=== PATIENT | male | born 1955 | race African-American/Black ===

== ENCOUNTER 2016-12-24 06:50 | Emergency (ER) | payer BC ==
[~2016-12-24] VITALS: Ht 177.8 cm; Wt 104.0 kg
[2016-12-24] MEDS ORDERED: SODIUM CHLORIDE 0.9% 1,000 ML IV ONE (07:27)
[2016-12-24] MEDS ORDERED: MECLIZINE 25MG TABLET PO ONE (07:30)
[2016-12-24 07:50] LABS: BASOPHILS % 0.3 % (0.0-2.0); EOSINOPHILS % 2.6 % (0.0-5.0); HEMOGLOBIN. 11.2 g/dL (14.0-18.0); LYMPHOCYTES % 19.5 % (20.0-50.0); MEAN CORPUSCULAR HEMOGLOBIN 23.9 pg (28.0-32.0); MEAN CORPUSCULAR VOLUME 75.8 fL (80.0-94.0); MEAN PLATELET VOLUME 8.7 fl (7.4-10.4); NEUTROPHILS % 67.6 % (40.0-76.0); PLATELET 208 x1000/uL (130-400); RED CELL DISTRIBUTION WIDTH 18.3 % (11.6-14.6)
[2016-12-24 09:14] VITALS: BP 175/85
== END 2016-12-24 10:10 | disposition home or self-care (01) ==
LOC: ER 07:11
DX: H81.10 Benign paroxysmal vertigo, unspecified ear (principal); I10 Essential (primary) hypertension; E05.90 Thyrotoxicosis, unspecified without thyrotoxic crisis or storm; Z87.39 Personal history of other diseases of the musculoskeletal system and connective tissue
CPT/HCPCS: 36415; 70450; 80048; 85025; 96360; 96361; 99285; Z7610; J7030; J8597

== ENCOUNTER 2016-12-25 07:15 | Emergency (ER) | payer BC ==
[~2016-12-25] VITALS: Ht 180.3 cm; Wt 110.0 kg
[2016-12-25] MEDS ORDERED: DEXAMETHASONE 10 MG/ML VIAL IV ONE (08:15)
[2016-12-25 08:40] LABS: BASOPHILS % 0.4 % (0.0-2.0); EOSINOPHILS % 0.3 % (0.0-5.0); HEMATOCRIT. 34.6 % (42.0-52.0); HEMOGLOBIN. 11.1 g/dL (14.0-18.0); LYMPHOCYTES % 11.2 % (20.0-50.0); MEAN CORPUSCULAR VOLUME 74.6 fL (80.0-94.0); MEAN PLATELET VOLUME 8.7 fl (7.4-10.4); MONOCYTES % 7.7 % (2.0-8.0); NEUTROPHILS % 80.4 % (40.0-76.0); PLATELET 224 x1000/uL (130-400); RED BLOOD CELL COUNT 4.64 mill/uL (4.7-6.1); RED CELL DISTRIBUTION WIDTH 17.9 % (11.6-14.6)
[2016-12-25 08:48] LABS: CHLORIDE 107 mEq/L (98-107)
[2016-12-25 08:48] LABS: INR 1.1; PROTHROMBIN TIME 11.2 sec
[2016-12-25 08:54] LABS: CARBON DIOXIDE 25 mEq/L (21-32)
[2016-12-25] MEDS ORDERED: MANNITOL 20% (20GM/100ML) BAG 500ML PREMIX IV ONE (11:00)
[2016-12-25] MEDS ORDERED: MIDAZOLAM HCL 5 MG/ML VIAL ONE (13:12)
[2016-12-25] MEDS ORDERED: SUCCINYLCHOLINE CHLORIDE 200MG/10ML VIAL IV ONE (13:23)
[2016-12-25] MEDS ORDERED: ETOMIDATE 2MG/ML 10ML VIAL IV ONE (13:23)
[2016-12-25] MEDS ORDERED: MIDAZOLAM HCL 2 MG/2 ML VIAL IV ONE ×2 (13:30)
[2016-12-25 13:34] VITALS: BP 169/84
== END 2016-12-25 13:39 | disposition short-term general hospital (02) ==
LOC: ER 07:23
DX: I63.8 Other cerebral infarction (principal); R53.1 Weakness; G91.9 Hydrocephalus, unspecified; I10 Essential (primary) hypertension; E05.90 Thyrotoxicosis, unspecified without thyrotoxic crisis or storm
CPT/HCPCS: 31500; 36415; 70450; 80048; 82962; 85025; 85610; 93005; 96365; 96366; 96375; 99291; 99292; J0330; J1100; J2250; J3490; Z7610; A4315